=== PATIENT | female | born 1965 | race Caucasian/White ===

== ENCOUNTER 2022-05-16 10:11 | Emergency (ER) | payer OTHER ==
[~2022-05-16] VITALS: Ht 157.5 cm; Wt 71.7 kg
--- OUTSIDE RECORDS SUMMARY | 2022-05-16 10:15 | XMS ---
PreManage Notification: ROM SMITH Security Procurement Buyer Events No recent Security Events currently on file [facility]ITERIA [facility] - [facility] PROVIDERS There are no care providers on record at this time. Care Guidelines exist for the following facilities: [facility] ( 10/13/2018 ) [facility] (12 MO.) [facility] [place] [facility] NOTE: Visits indicate total known visits. ED/UCC VISIT TRACKING (12 MO.) 05/16/2022 10:13 [facility] TYPE: Emergency COMPLAINT: - R ARM WOUND 03/11/2022 11:45 [facility] [place] TYPE: Emergency COMPLAINT: - Rib pain DIAGNOSES: - Essential (primary) hypertension - Nicotine dependence, cigarettes, uncomplicated - Chronic viral hepatitis C - Rheumatoid arthritis, unspecified - Other custodial (current) drug therapy - Allergy status to other antibiotic agents - Pleurodynia - Chronic obstructive pulmonary disease, unspecified 03/02/2022 22:27 [facility] [place] TYPE: Emergency COMPLAINT: - Overdose DIAGNOSES: - Chronic viral hepatitis C - Rheumatoid arthritis, unspecified - Nicotine dependence, cigarettes, uncomplicated - Poisoning by fentanyl or fentanyl analogs, accidental (unintentional), initial encounter - Allergy status to other drugs, medicaments and biological substances - Essential (primary) hypertension - Chronic obstructive pulmonary disease, unspecified - Allergy status to other antibiotic agents - Other exterminator (current) drug therapy - Opioid dependence, uncomplicated - Other specified anxiety disorders 01/27/2022 11:24 [facility] [place] TYPE: Emergency COMPLAINT: - worsening of dog bite DIAGNOSES: - Other custodial (current) drug therapy - Chronic obstructive pulmonary disease, unspecified - Nicotine dependence, other tobacco product, uncomplicated - Rheumatoid arthritis, unspecified - Allergy status to narcotic agent - Chronic viral hepatitis C - Allergy status to penicillin - Other specified anxiety disorders - Acute kidney failure, unspecified - Essential (primary) hypertension - Opioid dependence, uncomplicated - Cellulitis of left lower limb - Allergy status to other antibiotic agents 01/25/2022 16:40 [facility] [place] TYPE: Emergency DIAGNOSES: - Nicotine dependence, unspecified, uncomplicated - Chronic viral hepatitis C - Rheumatoid arthritis, unspecified - Unspecified place or not applicable - Local infection of the skin and subcutaneous tissue, unspecified - Bitten by dog, initial encounter - Other custodial (current) drug therapy - Essential (primary) hypertension - Chronic obstructive pulmonary disease, unspecified - Open bite, left thigh, initial encounter 08/31/2021 13:51 [facility] [place] TYPE: Emergency DIAGNOSES: - Rheumatoid arthritis, unspecified - Shortness of breath - Allergy status to other antibiotic agents - Chronic viral hepatitis C - Chronic viral hepatitis C - Nicotine dependence, cigarettes, uncomplicated - Other exterminator (current) drug therapy - Essential (primary) hypertension - Other exterminator (current) drug therapy - Allergy status to other drugs, medicaments and biological substances - Chronic obstructive pulmonary disease, unspecified - Rheumatoid arthritis, unspecified - Allergy status to other antibiotic agents - Chronic obstructive pulmonary disease, unspecified - Essential (primary) hypertension - Allergy status to other drugs, medicaments and biological substances - Nicotine dependence, cigarettes, uncomplicated INPATIENT VISIT TRACKING (12 MO.) 01/28/2022 13:24 [facility] [place] TYPE: Medical Surgical COMPLAINT: - CELLULITIS DIAGNOSES: - CELLULITIS 01/27/2022 13:33 [facility] [place] TYPE: Medical Surgical DIAGNOSES: - Opioid dependence, uncomplicated - Other streptococcus as the cause of diseases classified elsewhere - Other specified anxiety disorders - Allergy status to narcotic agent - Acute kidney failure, unspecified - Chronic viral hepatitis C - Cellulitis of left lower limb - Rheumatoid arthritis, unspecified - Other custodial (current) drug therapy - Cellulitis of left lower limb - Nicotine dependence, other tobacco product, uncomplicated - Allergy status to penicillin - Allergy status to other antibiotic agents - Chronic obstructive pulmonary disease, unspecified - Essential (primary) hypertension [email or web address]
[2022-05-16] MEDS ORDERED: BACTRIM DS TAB1 EACH PO (12:41)
[2022-05-16] MEDS ORDERED: ENDOCET 5-3251 EACH PO (12:41)
== END 2022-05-16 12:52 | disposition home or self-care (01) ==
LOC: ED 10:11
PROC: 0R9L0ZZ Drainage of Right Elbow Joint, Open Approach (ICD-10-PCS; principal; 2022-05-16)
DX: M71.121 Other infective bursitis, right elbow (principal); Z88.0 Allergy status to penicillin; Z88.5 Allergy status to narcotic agent
CPT/HCPCS: 23931; 36415; 80053; 85025; 99283-25; J0696